=== PATIENT | female | born 1955 | race Caucasian/White ===

== ENCOUNTER 2016-10-25 23:48 | Emergency (ER) | payer OTHER ==
[~2016-10-25] VITALS: Ht 157.5 cm; Wt 55.3 kg
--- NOTE | 2016-10-25 23:59 | ED AMS/SEIZURE/WEAK/DIZZY ---
History of Present Illness General Chief Complaint: Dizziness Stated Complaint: NEAR SYNCOPE Source: patient Exam Limitations: no limitations Vital Signs & Intake/Output Vital Signs & Intake/Output Vital Signs Date Time Temp Pulse Resp B/P Pulse O2 O2 Flow FiO2 Ox Delivery Rate 10/26 0137 98 Room Air 10/26 0136 97.2 87 18 144/85 98 Room Air 10/26 0007 97.4 96 18 165/87 97 Room Air ED Intake and Output 10/26 0000 10/25 1200 Intake Total Output Total Balance Patient 122 lb Weight Allergies Coded Allergies: No Known Drug Allergies (10/25/16) Triage Note: PT BIBA FROM HOME FOR NEAR SYNCOPE. STOOD UP FROM CHAIR AND FELT LIGHTHEADED/DIZZY AND SWEATY. EPISODE LASTED APPROX 45 MINS. A MONTH AGO. 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 FINGERSTICK [address] ORTEGA AT BEDSIDE TO EVAL PT ON PT ARRIVAL TO ROOM Triage Nurses Notes Reviewed? yes Onset: Gradual Duration: minute(s):, gone now Timing: single episode today Injury Environment: home Severity: mild Modifying Factors: Improves With: rest. Associated Symptoms: dizziness HPI: 60-year-old woman in private health presents with dizziness. She notes that she was sitting in a chair. She stood up to go to the bathroom. She felt slightly dizzy. She needed to lay back down in the chair. She felt dizzy with mild diaphoresis. She had no chest pain, pressure, palpitations, nausea. She notes that she had 2 other episodes and prior weeks in the shower. Her symptoms were resolved when she sat down. Her son notes that she eats at 5-6pm and then the next morning at 10am. She notes, "that's a long time between meals." She notes that tonight the symptoms of dizziness lasted approximately 45 minutes and were self resolved. She is a symptomatic which she arrives in the emergency department. Past History Travel History Traveled to [place] past 21 day No Medical History Any Pertinent Medical History? see below for history Surgical History Surgical History: none Family History Hx Contributory? No Review of Systems Review of Systems Constitutional: Reports: no symptoms. EENTM: Reports: no symptoms. Respiratory: Reports: no symptoms. Cardiovascular: Reports: no symptoms. GI: Reports: no symptoms. Genitourinary: Reports: no symptoms. Musculoskeletal: Reports: no symptoms. Skin: Reports: no symptoms. Neurological/Psychological: Reports: no symptoms. Hematologic/Endocrine: Reports: no symptoms. Immunologic/Allergic: Reports: no symptoms. All Other Systems: Reviewed and Negative Physical Exam Physical Exam General Appearance: well developed/nourished, no apparent distress Head: atraumatic, normal appearance Eyes: Bilateral: normal appearance. Core Measures ACS in differential dx? No CVA/TIA Diagnosis: No Severe Sepsis Present: No Septic Shock Present: No Progress Differential Diagnosis: vertigo vs vasovagal vs dehydation vs other. Plan of Care: Orders Procedure Date/time Status URINALYSIS 10/25 2358 Complete TROPONIN LEVEL 10/25 2358 Complete COMPREHENSIVE METABOLIC PANEL 10/25 2358 Complete CBC WITHOUT DIFFERENTIAL 10/25 2358 Complete EKG 10/25 2358 Active Laboratory Tests 10/26/16 0028: Anion Gap 10, Estimated GFR > 60, BUN/Creatinine Ratio 28.6 H, Glucose 112 H, Calcium 9.8, Total Bilirubin 0.4, AST 29, ALT 46, Alkaline Phosphatase 67, Troponin I < 0.01, Total Protein 6.9, Albumin 4.3, Globulin 2.6, Albumin/ Globulin Ratio 1.7, CBC w Diff NO MAN DIFF REQ, RBC 4.35, MCV 93.6, MCH 32.3 H, RDW 12.7, MPV 7.9, Gran % 70.7, Lymphocytes % 23.3, Monocytes % 5.0, Eosinophils % 0.5, Basophils % 0.5, Absolute Granulocytes 6.5, Absolute Lymphocytes 2.1, Absolute Monocytes 0.5, Absolute Eosinophils 0, Absolute Basophils 0, PUBS MCHC 34.5, Urine Color STRAW, Urine Clarity CLEAR, Urine pH 6.5, Ur Specific Hector <= 1.005, Urine Protein NEG, Urine Ketones NEG, Urine Nitrite NEG, Urine Bilirubin NEG, Urine Urobilinogen 0.2, Ur Leukocyte Esterase SMALL H, Ur Microscopic SEDIMENT EXAMINED, Urine RBC RARE, Urine WBC 1-3 H, Ur Epithelial Cells RARE, Urine Hemoglobin TRACE-INTACT, Urine Glucose NEG Diagnostic Imaging: Viewed by Me: Radiology Read. Discussed w/RAD: Radiology Read. CXR Impression: no acute abnormality, no infiltrates, normal size heart, normal mediastinum Initial ED EKG: normal axis, normal intervals, normal p-waves, normal QRS complex, normal sinus rhythm Comments: PATIENT: FALGUNI OLSON PRESENT AGE: 60 PATIENT ACCOUNT NO: [id number] : 56 LOCATION: [facility] ORDERING PHYSICIAN: CHAD ORTEGA MD SERVICE DATE: 10/25/16 EXAM TYPE: RAD - XRY-PORTABLE CHEST XRAY EXAMINATION: XR PORTABLE CHEST CLINICAL INFORMATION: Syncope COMPARISON: 10/09/2013 TECHNIQUE: Portable AP view of the chest was obtained. FINDINGS: The lungs are clear with no focal consolidation. No evidence of pneumothorax, pulmonary edema, or pleural effusions. The cardiomediastinal silhouette is unremarkable. No acute osseous findings. IMPRESSION: No acute cardiopulmonary findings. DICTATED BY: GARTH GOMEZ MD DATE/TIME DICTATED:10/26/1644 SERVICE VEHICLE OPERATOR:AIDEE DATE/TIME TRANSCRIBED:10/26/1644 CONFIDENTIAL, DO NOT COPY WITHOUT APPROPRIATE AUTHORIZATION. <Electronically signed in Other Vendor System> SIGNED BY: GARTH GOMEZ MD 10/26/16 0050 Departure Departure Disposition: HOME OR SELF CARE Condition: Stable Clinical Impression Primary Impression: Dizzy Secondary Impressions: Dehydration Referrals: OLEKSANDR FULLER,SIRENA Caal (PCP/Family) Departure Forms: Customer Survey General Discharge Information Comments 10/26/16, 2:02am... pt feeling well in the ED. Benign labs and ekg, ..notable for elevated bun/cr ratio. Safe for discharge. Increased fluids advised.
[2016-10-26 00:42] LABS: ABSOLUTE BASOPHIL COUNT 0 /CUMM (0.0-0.2); ABSOLUTE EOSINOPHIL COUNT 0 /CUMM (0.0-0.7); ABSOLUTE GRANULOCYTE CT 6.5 /CUMM (1.4-6.5); ABSOLUTE LYMPH COUNT 2.1 /CUMM (1.2-3.4); ABSOLUTE MONOCYTE COUNT 0.5 /CUMM (0.10-0.60); BASOPHIL % 0.5 % (0.0-2.0); EOSINOPHIL % 0.5 % (0-5); GRANULOCYTE % 70.7 % (42.2-75.2); HEMATOCRIT 40.8 % (37-47); MEAN CORPUSCULAR HGB 32.3 PG (27.0-31.0); MEAN CORPUSCULAR HGB CONC 34.5 G/DL (33.0-37.0); MEAN CORPUSCULAR VOLUME 93.6 FL (81.0-99.0); MEAN PLATELET VOLUME 7.9 FL (7.4-10.4); PLATELET COUNT 263 /CUMM (130-400); RBC DISTRIBUTION WIDTH 12.7 % (11.5-14.5); RED BLOOD CELL CT 4.35 /CUMM (4.20-5.40); WHITE BLOOD CELL COUNT 9.2 /CUMM (4.8-10.8)
--- NOTE | 2016-10-26 00:50 | RADIOLOGY REPORT ---
EXAMINATION: XR PORTABLE CHEST CLINICAL INFORMATION: Syncope COMPARISON: 10/09/2013 TECHNIQUE: Portable AP view of the chest was obtained. FINDINGS: The lungs are clear with no focal consolidation. No evidence of pneumothorax, pulmonary edema, or pleural effusions. The cardiomediastinal silhouette is unremarkable. No acute osseous findings. IMPRESSION: No acute cardiopulmonary findings.
[2016-10-26 01:36] VITALS: BP 144/85
== END 2016-10-26 02:33 ==
LOC: ERH 23:48
PROVIDERS: Pediatrics
DX: R42 Dizziness and giddiness (principal); E86.0 Dehydration
CPT/HCPCS: 81001; 93005; 93010